=== PATIENT | male | born 1950 | race Caucasian/White ===

== ENCOUNTER 2018-08-03 09:17 | Inpatient (IN) | payer MEDICARE ==
[~2018-08-03] VITALS: Ht 175.3 cm; Wt 87.6 kg
[2018-08-03 10:32] LABS: BASOPHILS % 0.4 % (0.0-2.0); EOSINOPHILS % 1.7 % (0.0-5.0); HEMOGLOBIN. 16.2 g/dL (14.0-18.0); MEAN CORPUSCULAR HEMOGLOBIN 30.2 pg (28.0-32.0); MEAN CORPUSCULAR VOLUME 89.8 fL (80.0-94.0); MEAN PLATELET VOLUME 10.9 fl (7.4-10.4); MONOCYTES % 7.6 % (2.0-8.0); NEUTROPHILS % 72.3 % (40.0-76.0); PLATELET 124 x1000/uL (130-400); RED BLOOD CELL COUNT 5.35 mill/uL (4.7-6.1); RED CELL DISTRIBUTION WIDTH 13.6 % (11.6-14.6)
[2018-08-03 11:59] LABS: CHLORIDE 108 mEq/L (98-107)
[2018-08-03] MEDS ORDERED: ACETAMINOPHEN 325MG TABLET PO PRN (15:00)
[2018-08-03 21:12] LABS: CLARITY URINE CLEAR (CLEAR); COLOR URINE YELLOW (YELLOW); KETONES URINE NEGATIVE (NEGATIVE); LEUKOCYTE ESTERASE URINE NEGATIVE (NEGATIVE); NITRITE URINE NEGATIVE (NEGATIVE); OCCULT BLOOD URINE NEGATIVE (NEGATIVE); PROTEIN URINE NEGATIVE (NEGATIVE); SPECIFIC GRAVITY URINE 1.014 (1.005-1.030); UROBILINOGEN URINE 0.2 E.U./dL (0.2-1.0)
[2018-08-03 22:00] VITALS: BP 114/91
[2018-08-03] MEDS: SODIUM CHLORIDE 0.45% 1,000 ML IV SCH (22:09)
[2018-08-03] MEDS: ENOXAPARIN 40MG/0.4ML SYR SUBCUT SCH (22:09)
[2018-08-03] MEDS ORDERED: ENAL10TA PO (22:24)
[2018-08-03] MEDS ORDERED: TERA5CAP4 PO (22:24)
[2018-08-03] MEDS ORDERED: TERA1CAP7 PO (22:24)
[2018-08-04] VITALS (7 sets, daily range): BP systolic 128–167; BP diastolic 82–112
[2018-08-04] MEDS: CLONIDINE 0.1MG TABLET PO PRN (06:06)
[2018-08-04 07:22] LABS: CHLORIDE 111 mEq/L (98-107)
[2018-08-04 07:27] LABS: PHOSPHORUS 2.7 mg/dL (2.5-4.9)
[2018-08-04 07:28] LABS: LDL CHOLESTEROL 99 mg/dL (5-100)
[2018-08-04 07:30] LABS: HDL CHOLESTEROL 33 mg/dL (40-59)
[2018-08-04 07:31] LABS: T4 FREE 1.13 ng/dL (0.76-1.46)
[2018-08-04 08:09] LABS: BASOPHILS % 0.5 % (0.0-2.0); EOSINOPHILS % 2.6 % (0.0-5.0); HEMATOCRIT. 45.6 % (42.0-52.0); HEMOGLOBIN. 15.6 g/dL (14.0-18.0); LYMPHOCYTES % 24.4 % (20.0-50.0); MEAN CORPUSCULAR HEMOGLOBIN 30.4 pg (28.0-32.0); MEAN CORPUSCULAR VOLUME 88.8 fL (80.0-94.0); MEAN PLATELET VOLUME 10.7 fl (7.4-10.4); MONOCYTES % 9.1 % (2.0-8.0); NEUTROPHILS % 63.4 % (40.0-76.0); PLATELET 122 x1000/uL (130-400); RED BLOOD CELL COUNT 5.13 mill/uL (4.7-6.1); RED CELL DISTRIBUTION WIDTH 13.8 % (11.6-14.6)
[2018-08-04] MEDS: ENALAPRIL 5MG TABLET PO SCH ×2 (09:07→20:37)
[2018-08-04] MEDS: SODIUM CHLORIDE 0.45% 1,000 ML IV SCH ×2 (09:24→20:37)
[2018-08-04] MEDS: ENOXAPARIN 40MG/0.4ML SYR SUBCUT SCH (20:37)
[2018-08-04] MEDS ORDERED: IOHEXOL-350 100 ML BOTTLE ONE (20:40)
[2018-08-04] MEDS ORDERED: TERAZOSIN HCL 5MG CAPSULE PO SCH (21:00)
[2018-08-05 00:09] VITALS: BP 154/90
[2018-08-05 04:00] VITALS: BP 151/89
[2018-08-05 07:00] LABS: BASOPHILS % 0.8 % (0.0-2.0); EOSINOPHILS % 4.3 % (0.0-5.0); HEMATOCRIT. 42.8 % (42.0-52.0); HEMOGLOBIN. 14.8 g/dL (14.0-18.0); LYMPHOCYTES % 22.7 % (20.0-50.0); MEAN CORPUSCULAR HEMOGLOBIN 30.8 pg (28.0-32.0); MEAN PLATELET VOLUME 10.7 fl (7.4-10.4); MONOCYTES % 8.5 % (2.0-8.0); NEUTROPHILS % 63.7 % (40.0-76.0); PLATELET 120 x1000/uL (130-400); RED BLOOD CELL COUNT 4.81 mill/uL (4.7-6.1); RED CELL DISTRIBUTION WIDTH 13.7 % (11.6-14.6)
[2018-08-05 08:00] VITALS: BP 161/97
[2018-08-05 08:38] LABS: CHLORIDE 110 mEq/L (98-107)
[2018-08-05] MEDS: ENALAPRIL 5MG TABLET PO SCH (08:50)
[2018-08-05] MEDS: CLONIDINE 0.1MG TABLET PO PRN (08:51)
[2018-08-05 12:00] VITALS: BP 154/92
[2018-08-05] MEDS ORDERED: AMLODIPINE 5MG TABLET PO SCH (13:00)
[2018-08-05 14:19] VITALS: BP 154/92
[2018-08-05] MEDS ORDERED: ENALAPRIL 5MG TABLET PO SCH (21:00)
== END 2018-08-05 16:12 | disposition home health service (06) | DRG 312 ==
LOC: ER 09:17 → 7WST 12:55 → EDBEDREQTM 12:56 → EDBEDREQ 12:56 → ENRESERV 20:54
PROVIDERS: ADMIT Family Medicine Adult Medicine; ATTEND Family Medicine Adult Medicine
DX: R55 Syncope and collapse (principal); R17 Unspecified jaundice; I95.1 Orthostatic hypotension; D69.6 Thrombocytopenia, unspecified; D72.829 Elevated white blood cell count, unspecified; E11.9 Type 2 diabetes mellitus without complications; E78.00 Pure hypercholesterolemia, unspecified; E86.0 Dehydration; E78.5 Hyperlipidemia, unspecified; I10 Essential (primary) hypertension; I25.10 Atherosclerotic heart disease of native coronary artery without angina pectoris; N40.0 Benign prostatic hyperplasia without lower urinary tract symptoms; Z86.73 Personal history of transient ischemic attack (TIA), and cerebral infarction without residual deficits; I25.2 Old myocardial infarction; E11.65 Type 2 diabetes mellitus with hyperglycemia
CPT/HCPCS: 36415; 70551; 71045; 71275; 80048; 80061; 83036; 83735; 83880; 84100; 84439; 84443; 84484; 93005; 93306; 93880; 97162; 97165; 99285; J1650; Q9967

== ENCOUNTER 2020-01-19 14:51 | Emergency (ER) | payer MEDICARE ==
[~2020-01-19] VITALS: Ht 175.3 cm; Wt 82.0 kg
[2020-01-19] MEDS ORDERED: SODIUM CHLORIDE 0.9% 500 ML IV ONE (15:15)
[2020-01-19 15:37] LABS: BASOPHILS % 0.6 % (0.0-2.0); EOSINOPHILS % 1.6 % (0.0-5.0); HEMATOCRIT. 40.4 % (42.0-52.0); HEMOGLOBIN. 14.1 g/dL (14.0-18.0); LYMPHOCYTES % 12.1 % (20.0-50.0); MEAN CORPUSCULAR VOLUME 88.6 fL (80.0-94.0); MEAN PLATELET VOLUME 10.4 fl (7.4-10.4); MONOCYTES % 6.3 % (2.0-8.0); NEUTROPHILS % 79.4 % (40.0-76.0); PLATELET 186 x1000/uL (130-400); RED BLOOD CELL COUNT 4.56 mill/uL (4.7-6.1); RED CELL DISTRIBUTION WIDTH 12.7 % (11.6-14.6)
[2020-01-19 15:44] LABS: CHLORIDE 104 mEq/L (98-107)
[2020-01-19 19:49] VITALS: BP 129/72
== END 2020-01-19 20:02 | disposition home or self-care (01) ==
LOC: ER 14:51
DX: R55 Syncope and collapse (principal); I11.9 Hypertensive heart disease without heart failure; E11.65 Type 2 diabetes mellitus with hyperglycemia; E78.00 Pure hypercholesterolemia, unspecified; F12.10 Cannabis abuse, uncomplicated; Z86.73 Personal history of transient ischemic attack (TIA), and cerebral infarction without residual deficits
CPT/HCPCS: 36415; 70450; 71045; 80053; 83880; 84484; 85025; 93005; 96360; 96361; 99285; J7040